=== PATIENT | female | born 1990 | race Caucasian/White ===

== ENCOUNTER 2020-11-09 16:34 | Outpatient (CLI) | payer OTHER, SELFPAY ==
[2020-11-09 16:44] VITALS: BMI 34.5
[2020-11-09 16:47] VITALS: TEMP 36.3
[2020-11-09 16:48] VITALS: BP 137/78; PULSE 93
[2020-11-09 17:27] LABS: ROM Internal Control Test YES-OK TO RESULT pt. (Internal QC); ROM Patient Test Negative (Negative)
--- NOTE | 2020-11-10 07:08 | OB.TRI.NOTE ---
HPI - General HPI Narrative EDU MORTON, is a 30 yo at 39.1 weeks gestation who presents to triage with having a gush of fluid and thinks her water has broken. She denies feeling any contractions or cramping and reports positive movement. Maternal Data Information SUSAN Calculator Estimated Delivery Date Method Current WG Current Estimate 11/15/20 Manual 39w 2d PFSH PFSH Home Medications acyclovir 400 mg PO TID 11/09/20 [History Last Taken 11/09/20 12:00 400 mg] [id number] [] 1 tab PO DAILY 11/09/20 [History Last Taken 11/09/20 12:00 1 tab] Allergy/AdvReac Type Severity Reaction Status Date / Time Penicillins Allergy Hives Verified 11/09/20 16:48 ROS Eyes Eyes: Denies blurry vision Cardiovascular Cardiovascular: Reports none; Denies chest pain at rest, chest pain with activity or dizziness Respiratory/Chest Respiratory/Chest: Denies cough or dyspnea Gastrointestinal Gastrointestinal: Reports none and other; Denies diarrhea or vomiting Genitourinary Genitourinary: Denies dysuria Musculoskeletal Musculoskeletal: Reports none Integumentary Integumentary: Reports none; Denies rash Neurologic Neurologic: Denies dizziness, headache(s) or other visual disturbances Psychiatric Psychiatric: Reports none Physical Exam Const alert and no apparent distress General Appearance: cooperative Orientation / Consciousness: awake Exam Limitations: no limitations HEENT normocephalic Eyes General Eye: normal appearance of both eyes Neck full ROM Chest inspection of chest normal Resp normal respiratory effort and normal air movement Effort and Inspection: symmetric chest movement Auscultation: clear to auscultation bilaterally Cardio regular rate GI soft to palpation, non-tender and non-distended Inspection: and other Back/Spine normal ROM Extremity full ROM, normal capillary refill and no calf tenderness Skin no rashes or lesions noted Neuro oriented x3 and CN's II-XII intact bilaterally Psych mental status grossly normal NST FHR Rate Baby A Baseline: 140 Variability:: Moderate Accelerations:: 15 x 15 NST Reactive:: Yes FHR Category:: Category I Uterine Activity:: Irritability Assessment & Plan (1) 39 weeks gestation of : (2) Leakage of amniotic fluid: PLAN: NST reactive- Cat.1 ROM plus - collected and sent - negative results D/C home with follow up in office
== END 2020-11-09 17:49 | disposition home or self-care (01) ==
LOC: WPOUT 16:38 → WP 16:38
PROVIDERS: Referring Provider Advanced Practice Midwife; Visit Provider Advanced Practice Midwife
DX: O42.92 Full-term premature rupture of membranes, unspecified as to length of time between rupture and onset of labor (principal); Z3A.39 39 weeks gestation of pregnancy
CPT/HCPCS: 59025; 59050; 84112; 99218; G0378

== ENCOUNTER 2020-11-21 19:20 | Inpatient (IN) | payer BC, SELFPAY ==
[2020-11-21 19:42] VITALS: PULSE 229; O2SAT 79
[2020-11-21 19:43] VITALS: BP 143/86; PULSE 104
[2020-11-21 19:46] VITALS: BMI 34.5
[2020-11-21 19:48] VITALS: TEMP 36.9
[2020-11-21] MEDS: 0.9% Saline Lock 10 ML Syringe IV (19:50)
[2020-11-21 20:13] LABS: Absolute Lymphocyte Count 1.85 X10^3/uL (0.83-4.51); Absolute Neutrophil Count 11.2 X10^3/uL (2.0-7.7); Basophil# 0.02 X10^3/uL; Basophil% 0.1 % (0-1); Eosinophil# 0.08 X10^3/uL; Eosinophils% 0.6 % (0-5); Hematocrit 35.6 % (37-47); Hemoglobin 11.7 g/dL (12.0-15.0); Lymphocyte # 1.85 X10^3/ul (0.83-4.51); Mean Corp Hgb Conc 32.9 g/dL (32-36); Mean Corpuscular Hgb 27.5 pg (27.0-32.0); Mean Corpuscular Volume 83.6 fL (81-99); Mean Platelet Vol. 10.8 fl (6.2-12.0); Monocyte# 0.95 X10^3/uL; Monocyte% 6.7 % (0-10); NRBC Flagged by Analyzer 0 % (0-5); Neutrophil # 11.16 X10^3/uL (2.7-7.7); Neutrophil % 78.7 % (47-70); Platelet Count 330 K/mm3 (150-450); RBC Distribution Width CV 13.9 % (11.6-14.6); RBC Distribution Width SD 42.3 fl (35.1-43.9); Red Blood Count 4.26 M/mm3 (4.2-5.4); White Blood Count 14.2 K/mm3 (4.4-11.0)
[2020-11-21] MEDS: miSOPROStol 25 MCG TABLET PO (20:23)
[2020-11-21 21:51] VITALS: PULSE 77; TEMP 36.2; O2SAT 97
[2020-11-21 21:52] VITALS: BP 132/84; PULSE 85; TEMP 36.2
[2020-11-21 23:21] VITALS: PULSE 81; O2SAT 98
[2020-11-22] VITALS (156 sets, daily range): BP systolic 98–195; BP diastolic 53–100; PULSE 68–148; RESP 16; TEMP 35.6–37.7; O2SAT 86–100
[2020-11-22] MEDS: miSOPROStol 25 MCG TABLET PO (01:23)
[2020-11-22] MEDS: 0.9% Normal Saline Single 100 ML IV.SOLN. INTRA-UTER (05:53)
--- NOTE | 2020-11-22 06:06 | NURSING ---
Spoke with Peter from Pharmacy, Dr. Rodriguez wants IV vancomycin weight based ordered 20mg/kg per new GBS positive order set. Instructed RN to place order for 2000mg IV vancomycin q8hrs.
[2020-11-22] MEDS: Lactated Ringers 1,000 ML 50 ML IV (06:14)
[2020-11-22] MEDS: Oxytocin 30 units/NS 500 ml 30 UNITS/500 ML IV.SOLN IV (06:14)
--- NOTE | 2020-11-22 06:15 | PCM.HP.OB ---
HPI - General General Date of Admission: 11/21/20 HPI Narrative EDU MORTON, is a 30 F G1 at 40w6d who presents for scheduled IOL. Maternal Data Information SUSAN Calculator Estimated Delivery Date Method Current WG Current Estimate 11/15/20 Manual 41w 0d PFSH PFS Medical History (Updated 11/22/20 @ 06:[address] Fani Rodriguez, DO) HPV (human papilloma virus) infection Home Medications acyclovir 400 mg PO TID 11/09/20 [History Last Taken 11/21/20] [id number] [] 1 tab PO DAILY 11/09/20 [History Last Taken 11/09/20 12:00 1 tab] Allergy/AdvReac Type Severity Reaction Status Date / Time Penicillins Allergy Hives Verified 11/21/20 20:12 Social History Smoking Status: Never smoker History Elective abortions Hx Para 0 Spontaneous abortions Hx # Term Pregnancies Ectopic pregnancies Hx # Pregnancies Multiple births # of living children NST FHR Rate Baby A Baseline: 135 Variability:: Moderate Accelerations:: 15 x 15 Decelerations:: None NST Reactive:: Yes FHR Category:: Category I Uterine Activity:: No ctx's on admission Vital Signs Vital Signs Vital Signs: 11/21/20 19:42 11/21/20 19:43 11/21/20 19:48 Temperature 98.4 F Temperature Source Temporal Pulse Rate 229 H 104 H Blood Pressure 143/86 H BP Systolic 143 BP Diastolic 86 Pulse Ox 79 11/21/20 21:51 11/21/20 21:52 11/21/20 23:21 Temperature 97.2 F L 97.1 F L Temperature Source Temporal Pulse Rate 77 85 81 Blood Pressure 132/84 H BP Systolic 132 BP Diastolic 84 Pulse Ox 97 98 11/22/20 01:18 11/22/20 03:15 11/22/20 03:16 Temperature 97.2 F L 96.6 F L Temperature Source Temporal Temporal Pulse Rate 82 68 Blood Pressure 138/82 H 133/69 H BP Systolic 138 133 BP Diastolic 82 69 Pulse Ox 97 99 11/22/20 06:12 11/22/20 06:13 Temperature 98.2 F Temperature Source Pulse Rate 89 Blood Pressure 135/91 H BP Systolic 135 BP Diastolic 91 Pulse Ox 99 Weight Weight: 227 lb 1.218 oz Body Mass Index (BMI) 34.5 Physical Exam Const alert and no apparent distress General Appearance: comfortable GI non-tender External Female Exam: Negative for external lesion Labs Labs Labs: Blood Type O POSITIVE Antibody Screen NEGATIVE Hct 35.6 % (37-47) L Hgb 11.7 g/dL (12.0-15.0) L Assessment & Plan (1) 40 weeks gestation of : PLAN: - Admit for scheduled IOL - Routine intrapartum care - Vanc for GBS prophylaxis - Epidural PRN - Cytotec overnight - Cvx this AM /-2, intracervical lebron placed in usual fashion - Start Pit gtt - No HSV symptoms or lesions - Pelvis adequate and EFW expected to be < 4500 g, anticipate vaginal delivery (2) Herpes: (3) History of depression:
[2020-11-22] MEDS: Acetaminophen 500 MG Tablet PO (06:26)
--- NOTE | 2020-11-22 08:13 | PCM.PN.BLA ---
Progress Note patient seen at bedside- lebron bulb out. VE: /-2, AROM performed- scant clear fluid. IUPC placed. Continue pitcoin. Epidural when requested. Anticipate . FHR Cat 1 reactive.
[2020-11-22] MEDS: Lactated Ringers 500 ML 999 ML IV ×2 (08:42→12:38)
[2020-11-22] MEDS: fentaNYL-bupivacaine (epidural) 100 ML BAG EPIDURAL ×2 (09:40→13:47)
[2020-11-22] MEDS: Lactated Ringers 1,000 ML 200 ML IV (14:00)
[2020-11-22] MEDS: Amnioinfusion- 0.9% NS 1,000 ML IV.SOLN. 1000 ML INTRA-UTER (15:34)
[2020-11-22] MEDS: DiphenhydrAMINE 50 MG/ML Syringe IV (15:35)
[2020-11-22] MEDS: Oxytocin 30 units/NS 500 ml 30 UNITS/500 ML IV.SOLN 334 UNITS IV (19:19)
[2020-11-22] MEDS: Methylergonovine 0.2 MG/ML Ampul IM (19:22)
[2020-11-22] MEDS: Carboprost Tromethamine 250 MCG/ML Ampul IM (19:25)
[2020-11-22] MEDS: miSOPROStol 200 MCG Tablet 1000 MCG RC (19:29)
[2020-11-22] MEDS: 0.9% Saline Lock 10 ML Syringe IV (19:52)
--- NOTE | 2020-11-22 19:52 | OP.PCM_ITS ---
Maternal Data Information SUSAN Calculator Estimated Delivery Date Method Current WG Current Estimate 11/15/20 Manual 41w 0d Final SUSAN: 11/15/20 Final SUSAN Source: US <20 weeks Gestational age: 43 Vaginal Delivery Maternal Presentation Maternal Presentation: Medically Indicated Induction Maternal Presentation: POST EDC induction Type of Induction: Pitocin, Dubon Bulb, Amniotomy and Cytotec Operative Information Date of Procedure: 11/22/20 Pre-Operative Diagnosis: Post Term gestation Post-Operative Diagnosis: same, Live female Surgery / Procedure Performed: Spontaneous Vaginal Delivery Type of Anesthesia: Epidural Drain: Dubon to straight drain Estimated Blood Loss: 600 Time of Delivery: 19:15 Findings Description of Procedure: Nuchal cord was appreciated and reduced.Patient progressed to fully dilated. With good maternal pushing efforts the head was delivered without complication. Good maternal pushing efforts combined with gentle downward traction delivered the anterior shoulder. placed on the mother's chest was vigorous at . Delayed co The cord was then clamped and cut.rd clamping was performed. Followed by the rest of the 's body. The was then The placenta delivered spontaneously intact without complication. Pitocin was started. Brisk bleeding was noted. Vaginal exam revealed a first- degree vaginal laceration. Uterine massage was performed Methergine was given IM. Brisk bleeding still appreciated. Hemabate given IM in the lower uterine segment. Brisk bleeding was still appreciated Cytotec 1000 mcg was placed per rectum. TXA was ordered but by the time it was received from pharmacy bleeding had slowed. At this time the first-degree vaginal laceration was repaired using 2-0 Vicryl suture and a 3- 0 rapide interrupted suture on the left labia majora. Good hemostasis was again appreciated lap needle count were correct. Vaginal sweep was negative. Presentation: Vertex Amniotic Membrane Rupture Type: Artificial Time of Membrane Rupture: 0804 Amniotic Fluid Description: Lightly stained meconium Placental Delivery Description: Spontaneous Placenta Disposition: [facility] Specimen(s) Removed: Placenta Cord Vessel Description: 3 Vessels Cord Entanglement: Around neck x 1, loose Nuchal Cord Compression: With compression Infant A Gender: Female (1 minute): 8 (5 minute): 9 Delayed Cord Clamping: Yes Post Vaginal Delivery Medications Given After Delivery: IV Pitocin, IM Methergin, IM Hemabate and - (Cytotec 1000 mcg per rectum) Episiotomy Description: None Laceration: Vaginal Extension/lac and 1st degree Complication Complications: - (Uterine atony) Admit VTE Documentation VTE Present on Admission: No VTE Mechan Device Prophylaxis: None VTE Pharm Prophylaxis Ordered: No Reason Prophylaxis Not Ordered: Procedure Not Indicated
[2020-11-22 21:20] LABS: Absolute Neutrophil Count 24.5 X10^3/uL (2.0-7.7); Basophil# 0.05 X10^3/uL; Basophil% 0.2 % (0-1); Eosinophil# 0.01 X10^3/uL; Hematocrit 32.7 % (37-47); Hemoglobin 10.6 g/dL (12.0-15.0); Mean Corp Hgb Conc 32.4 g/dL (32-36); Mean Corpuscular Hgb 27.4 pg (27.0-32.0); Mean Corpuscular Volume 84.5 fL (81-99); Mean Platelet Vol. 10.6 fl (6.2-12.0); Monocyte# 1.61 X10^3/uL; Monocyte% 5.9 % (0-10); NRBC Flagged by Analyzer 0 % (0-5); Neutrophil # 24.45 X10^3/uL (2.7-7.7); POSITIVE DIFFERENTIAL YES; Platelet Count 301 K/mm3 (150-450); RBC Distribution Width CV 14.1 % (11.6-14.6); RBC Distribution Width SD 43.2 fl (35.1-43.9); Red Blood Count 3.87 M/mm3 (4.2-5.4); White Blood Count 27.5 K/mm3 (4.4-11.0)
[2020-11-22 21:30] LABS: Differential Indicated SCAN CRITERIA MET
[2020-11-22 22:03] LABS: Anisocytosis RARE; Differential Comment SEE COMMENTS; Platelet Estimate ADEQUATE (ADEQ); Red Cell Morphology N CHROM NORMAL (NORM C&C)
[2020-11-23 03:16] VITALS: BP 119/64; PULSE 94; RESP 16; TEMP 36.9
[2020-11-23 05:55] LABS: Absolute Lymphocyte Count 1.82 X10^3/uL (0.83-4.51); Absolute Neutrophil Count 19.9 X10^3/uL (2.0-7.7); Basophil# 0.05 X10^3/uL; Basophil% 0.2 % (0-1); Eosinophil# 0.02 X10^3/uL; Eosinophils% 0.1 % (0-5); Hemoglobin 9.1 g/dL (12.0-15.0); Lymphocyte # 1.82 X10^3/ul (0.83-4.51); Lymphocyte % 7.7 % (19-41); Mean Corp Hgb Conc 32.5 g/dL (32-36); Mean Corpuscular Hgb 27.7 pg (27.0-32.0); Mean Corpuscular Volume 85.4 fL (81-99); Mean Platelet Vol. 11.3 fl (6.2-12.0); Monocyte# 1.73 X10^3/uL; Monocyte% 7.3 % (0-10); NRBC Flagged by Analyzer 0 % (0-5); Neutrophil # 19.88 X10^3/uL (2.7-7.7); POSITIVE DIFFERENTIAL YES; Platelet Count 255 K/mm3 (150-450); RBC Distribution Width CV 14.1 % (11.6-14.6); RBC Distribution Width SD 43.9 fl (35.1-43.9); Red Blood Count 3.28 M/mm3 (4.2-5.4); White Blood Count 23.7 K/mm3 (4.4-11.0)
[2020-11-23 06:01] LABS: Differential Indicated SCAN CRITERIA MET
--- NOTE | 2020-11-23 08:51 | PCM.PN.OB ---
Subjective Subjective Doing well per patient and nursing staff. Ambulating and taking PO without difficulty. Voiding and passing flatus. Pain controlled. , services for assistance. Denies headache, visual changes, chest pain, shortness of breath, leg pain or increased bleeding. Lochia normal. would like to be discharged home today. Objective Data Objective Data Vital Signs: Vital Signs Temp Pulse Resp BP Pulse Ox 98.4 F 94 16 119/64 98 11/23/20 03:16 11/23/20 03:16 11/23/20 03:16 11/23/20 03:16 11/22/20 21:55 Oxygen Delivery Method Room Air Weight: 227 lb 1.218 oz Body Mass Index (BMI) 34.5 Intake & Output: Intake and Output for Last 24 Hours 11/21/20 11/22/20 11/23/20 23:59 23:59 23:59 Intake Total 250 / 250 6110.86 / 6110.86 Output Total 200 / 200 2100 / 2100 600 / 600 Balance 50 / 50 4010.86 / 4010.86 -600 / -600 Lab / Micro Data Result Diagrams: 11/23/20 05:18 Labs: Laboratory Results - last 24 hr 11/22/20 21:10: WBC 27.5 H, RBC 3.87 L, Hgb 10.6 L, Hct 32.7 L, MCV 84.5, MCH 27.4, MCHC 32.4, RDW Std Deviation 43.2, RDW Coeff of Michaela 14.1, Plt Count 301, MPV 10.6, Immature Gran % (Auto) 0.900, Neut % (Auto) 89.0 H, Lymph % (Auto) 4.0 L, [place] % (Auto) 5.9, Eos % (Auto) 0.0, Baso % (Auto) 0.2, Absolute Neuts (auto) 24.5 H, Absolute Lymphs (auto) 1.10, Nucleated RBC % 0, Differential Comment SEE COMMENTS, Diff Path Review August, Platelet Estimate ADEQUATE, RBC Morphology N CHROM, Anisocytosis RARE 11/23/20 05:18: WBC 23.7 H, RBC 3.28 L, Hgb 9.1 L, Hct 28.0 L, MCV 85.4, MCH 27.7, MCHC 32.5, RDW Std Deviation 43.9, RDW Coeff of Michaela 14.1, Plt Count 255, MPV 11.3, Immature Gran % (Auto) 0.700, Neut % (Auto) 84.0 H, Lymph % (Auto) 7.7 L, [place] % (Auto) 7.3, Eos % (Auto) 0.1, Baso % (Auto) 0.2, Absolute Neuts (auto) 19.9 H, Absolute Lymphs (auto) 1.82, Nucleated RBC % 0, Diff Path Review May foll ROS Constitutional Constitutional: Reports systems reviewed and no addt'l complaints, except as documented; Denies headache(s) Eyes Eyes: Denies acute decrease in peripheral vision, blurry vision or change in vision ENT HEENT: Reports systems reviewed and no addt'l complaints, except as documented Cardiovascular Cardiovascular: Denies chest pain or dizziness Respiratory/Chest Respiratory/Chest: Denies cough, dyspnea, dyspnea on exertion, shortness of breath at rest or shortness of breath with exertion Gastrointestinal Gastrointestinal: Denies abdominal pain, diarrhea, nausea or vomiting Genitourinary Genitourinary: Denies abdominal discomfort Musculoskeletal Musculoskeletal: Denies limited range of motion Integumentary Integumentary: Reports systems reviewed and no addt'l complaints, except as documented Neurologic Neurologic: Reports systems reviewed and no addt'l complaints, except as documented Psychiatric Psychiatric: Reports systems reviewed and no addt'l complaints, except as documented Endocrine Endocrinology: Reports systems reviewed and no addt'l complaints, except as documented Hematologic/Lymphatic Hematologic/Lymphatic: Reports systems reviewed and no addt'l complaints, except as documented Allergic/Immunologic Allergic/Immunologic: Reports systems reviewed and no addt'l complaints, except as documented Physical Exam Const alert and oriented x3 General Appearance: cooperative Orientation / Consciousness: awake, oriented to person, oriented to place and oriented to time Exam Limitations: no limitations HEENT normocephalic Head and Scalp: normal to inspection, normocephalic and atraumatic Face and Sinus: normal facial exam Eyes General Eye: normal appearance of both eyes Neck full ROM Chest Chest: symmetrical chest wall rise Resp normal respiratory effort and normal air movement Auscultation: clear to auscultation bilaterally Cardio regular rate, regular rhythm, S1 normal heart sound, S2 normal heart sound, no murmurs, no rub, no gallops and no clicks GI normal to inspection, nondistended, normoactive bowel sounds and non-tender GI Narrative: fundus firm 2 below U. appearance of the vagina normal Bladder / Kidney Exam: no CVA tenderness Back/Spine normal ROM Extremity normal to inspection and full ROM Extremity Narrative: Rafia's negative bilaterally Skin no rashes or lesions noted Neuro oriented x3, CN's II-XII intact bilaterally and moves all extremities Sensorium / Orientation: awake, alert and oriented to person Motor Exam: clonus absent Deep Tendon Reflexes: Rt Patellar (L4): 2+ and Lt Patellar (L4): 2+ Assessment & Plan (1) (normal spontaneous vaginal delivery): (2) Acute blood loss anemia: PLAN: 1. Routine and breast-feeding care 2. Acute blood loss anemia, ferrous sulfate 325 mg p.o. twice daily 3. Pain management, ibuprofen 600 mg p.o. every 6 hours sent to pharmacy 4. services to assist with breast-feeding 5. Follow-up in 2 weeks for virtual visit in 6 weeks visit 6. Patient requesting discharge home today, MARVIN ordered
--- NOTE | 2020-11-23 08:53 | PCM.DC.SUM ---
Providers Date of Admission: 11/21/20 Reason For Visit: VAGINAL DELIVERY Diagnosis Discharge Diagnosis (1) 40 weeks gestation of : Status: Acute Code(s): Z3A.40 - 40 weeks gestation of (2) Herpes: Status: Acute Code(s): B00.9 - Herpesviral infection, unspecified (3) History of depression: Status: Acute Code(s): Z86.59 - Personal history of other mental and behavioral disorders (4) (normal spontaneous vaginal delivery): Status: Acute Code(s): O80 - Encounter for full-term uncomplicated delivery Medications at Discharge Home Medications [id number] 1 tab PO DAILY 11/09/20 acetaminophen 1,000 mg PO Q6H PRN PRN #0 tab 11/23/20 dibucaine 1 applic TOPICAL TID PRN PRN #0 g 11/23/20 ferrous sulfate 325 mg PO BID 30 Days #60 tab 11/23/20 ibuprofen 600 mg PO Q6H PRN PRN #30 tab 11/23/20 Hospital Course Operations None Weight / BMI Weight Weight: 227 lb 1.218 oz Body Mass Index (BMI) 34.5 ABG / Lab / Microbiology Data Result Diagrams: 11/23/20 05:18 Laboratory: Laboratory Results - last 24 hr 11/22/20 21:10: WBC 27.5 H, RBC 3.87 L, Hgb 10.6 L, Hct 32.7 L, MCV 84.5, MCH 27.4, MCHC 32.4, RDW Std Deviation 43.2, RDW Coeff of Michaela 14.1, Plt Count 301, MPV 10.6, Immature Gran % (Auto) 0.900, Neut % (Auto) 89.0 H, Lymph % (Auto) 4.0 L, [place] % (Auto) 5.9, Eos % (Auto) 0.0, Baso % (Auto) 0.2, Absolute Neuts (auto) 24.5 H, Absolute Lymphs (auto) 1.10, Nucleated RBC % 0, Differential Comment SEE COMMENTS, Diff Path Review May , Platelet Estimate ADEQUATE, RBC Morphology N CHROM, Anisocytosis RARE 11/23/20 05:18: WBC 23.7 H, RBC 3.28 L, Hgb 9.1 L, Hct 28.0 L, MCV 85.4, MCH 27.7, MCHC 32.5, RDW Std Deviation 43.9, RDW Coeff of Michaela 14.1, Plt Count 255, MPV 11.3, Immature Gran % (Auto) 0.700, Neut % (Auto) 84.0 H, Lymph % (Auto) 7.7 L, [place] % (Auto) 7.3, Eos % (Auto) 0.1, Baso % (Auto) 0.2, Absolute Neuts (auto) 19.9 H, Absolute Lymphs (auto) 1.82, Nucleated RBC % 0, Diff Path Review May foll D/C Instructions Discharge Diet: No restrictions May resume sexual activity in: 6 weeks Weight Bearing Status: Full weight bearing Lifting Restricted to (Lbs): 20 Call your doctor if your incision/area has: Sudden Increased Bleeding, Increased Pain/ Swelling, Increased Redness and Foul Smelling Discharge Call your doctor if you observe: Fever of 101 or Higher, Inability to urinate, Inability to have a bowel movement, Using more than 1 pad per hour, Shortness of breath, Dizziness, Fainting spells, Chest pain, Increased palpitations (irregular heartbeat), Calf discomfort and Uncontrolled pain When: 2 weeks PP and 6 week PP Meaningful Use Info Meaningful Use Diagnoses (Choose all that apply): None applicable Discharge Plan Admission Admit Date/Time: 11/21/20 19:20 Primary Reason for Your Visit: Attending Provider: Georgina Benitez Instructions Patient Instructions: After a Vaginal Additional Instructions / Restrictions: follow up in 2 weeks for virtual visit and 6 weeks for visit Discharge Orders/Prescriptions Prescriptions: New acetaminophen 500 mg Tablet 1,000 mg PO Q6H PRN PRN (Reason: Pain 1-10 Or Fever) Qty: 0 RF: 0 ibuprofen 600 mg Tablet 600 mg PO Q6H PRN PRN (Reason: Pain Score 1-3) Qty: 30 RF: 0 dibucaine 1 % Ointment 1 applic topical TID PRN PRN (Reason: Discomfort) Qty: 0 RF: 0 ferrous sulfate 325 MG tablet 325 mg PO BID 30 Days Qty: 60 RF: 0 Continued [id number] 1 mg Tablet 1 tab PO DAILY RF: 0 Discontinued acyclovir 400 mg Tablet 400 mg PO TID RF: 0 Referrals / Follow Up: Georgina Benitez MD [STAFF PHYSICIAN] - Disposition Disposition (needs filled in before D/C Order can be placed): Home, Self Care
[2020-11-23 09:30] VITALS: BP 117/65; PULSE 118; RESP 18; TEMP 36.3
[2020-11-23] MEDS: Benzocaine/Lanolin/Aloe Vera 1 SPRAY EACH TOPICAL (09:50)
[2020-11-23 13:00] VITALS: BP 122/66; PULSE 100; RESP 16; TEMP 36.4
[2020-11-23 20:09] VITALS: BP 129/76; PULSE 100; RESP 16; TEMP 36.8
[2020-11-23] MEDS: Acetaminophen 500 MG Tablet 1000 MG PO (20:17)
[2020-11-24 02:30] VITALS: BP 103/52; PULSE 84; RESP 18; TEMP 36.3
[2020-11-24] MEDS: Acetaminophen 500 MG Tablet 1000 MG PO (02:41)
--- NOTE | 2020-11-24 08:33 | PN.OBGYN_ITS ---
Subjective Subjective Patient seen at bedside. Sitting up in chair. Feeling good. Denies any pain. Ambulating and voiding without difficulty. with support. Desires discharge home later today. Objective Data Objective Data Vital Signs: Vital Signs Temp Pulse Resp BP Pulse Ox 97.4 F L 84 18 103/52 L 98 11/24/20 02:30 11/24/20 02:30 11/24/20 02:30 11/24/20 02:30 11/22/20 21:55 Oxygen Delivery Method Room Air Weight: 227 lb 1.218 oz Body Mass Index (BMI) 34.5 Intake & Output: Intake and Output for Last 24 Hours 11/22/20 11/23/20 11/24/20 23:59 23:59 23:59 Intake Total 6110.86 / 6110.86 Output Total 2100 / 2100 600 / 600 Balance 4010.86 / 4010.86 -600 / -600 Lab / Micro Data Result Diagrams: 11/23/20 05:18 ROS Eyes Eyes: Denies blurry vision, change in vision or spots in vision ENT HEENT: Denies dizziness or headache(s) Cardiovascular Cardiovascular: Denies abdominal pain, chest pain or dyspnea Respiratory/Chest Respiratory/Chest: Denies cough, dyspnea, shortness of breath at rest or kenrick rtness of breath with exertion Gastrointestinal Gastrointestinal: Denies abdominal pain, diarrhea or vomiting Genitourinary Genitourinary: Denies change in urinary stream, difficulty urinating or dysuria Musculoskeletal Musculoskeletal: Reports none Integumentary Integumentary: Denies rash Neurologic Neurologic: Denies dizziness, headache(s), memory loss or weakness Physical Exam Const alert and no apparent distress General Appearance: cooperative and comfortable Exam Limitations: no limitations HEENT normocephalic Eyes General Eye: normal appearance of both eyes Neck full ROM General: normal visual inspection Chest Chest: symmetrical chest wall rise Resp normal respiratory effort and normal air movement Effort and Inspection: symmetric chest movement Auscultation: clear to auscultation bilaterally Cardio regular rate and regular rhythm GI normal to inspection, nondistended, normoactive bowel sounds Back/Spine normal ROM Extremity full ROM and no calf tenderness General Extremity: normal exam except as noted Skin no rashes or lesions noted Neuro CN's II-XII intact bilaterally Psych mental status grossly normal Assessment & Plan (1) (normal spontaneous vaginal delivery): PLAN: PPD #2 Routine care Pain control support Discharge home with follow up in office
[2020-11-24 09:06] LABS: Pathologist Review Reviewed
[2020-11-24 09:06] LABS: Pathologist Review Reviewed
[2020-11-24 09:30] VITALS: BP 113/65; PULSE 105; RESP 18; TEMP 36.6
== END 2020-11-24 13:05 | disposition home or self-care (01) | DRG 806 ==
PROVIDERS: Admitting Provider Obstetrics & Gynecology; Visit Provider Obstetrics & Gynecology
DX: O98.82 Other maternal infectious and parasitic diseases complicating childbirth (principal); O72.1 Other immediate postpartum hemorrhage; Z37.0 Single live birth; D62 Acute posthemorrhagic anemia; B95.1 Streptococcus, group B, as the cause of diseases classified elsewhere; O98.52 Other viral diseases complicating childbirth; B00.9 Herpesviral infection, unspecified; O69.81X0 Labor and delivery complicated by cord around neck, without compression, not applicable or unspecified; O70.0 First degree perineal laceration during delivery; Z3A.40 40 weeks gestation of pregnancy; O99.02 Anemia complicating childbirth
CPT/HCPCS: 59025; 59050; 85025; 86850; 86900; 86901; 99218; J7030; J7040; J7120; A4216; G0378